=== PATIENT | female | born 1950 | race Caucasian/White ===

== ENCOUNTER 2019-04-21 18:24 | Emergency (ER) | payer OTHER ==
[~2019-04-21] VITALS: Ht 157.5 cm; Wt 62.4 kg
[2019-04-21 18:26] VITALS: Ht 157.5 cm; Wt 62.4 kg
--- NOTE | 2019-04-21 18:37 | ERD ---
ER Documentation Chief Complaint Chief Complaint DIZZINESS X 3 DAYS HPI 68-year-old female history of hypertension hyperlipidemia presents the ED complaining of a 3-day history of dizziness. Patient reports 2-3 episodes per day of dizziness/lightheadedness which lasts several seconds accompanied by mild nausea but no vomiting. No URI symptoms or cough. Denies hearing changes or tinnitus. Denies chest pain, palpitations or shortness of breath. Mild, gradual onset, pressure-like, nonradiating occipital headache but neck pain, visual changes, focal weakness or numbness. No fevers or chills. Patient admits to anxiety and has been sleeping well recently but denies depression or thoughts of self-harm. ROS All systems reviewed and are negative except as per history of present illness. Allergies Allergies: Coded Allergies: No Known Allergy (Unverified , 04/21/19) PMhx/Soc History of Surgery: Yes Anesthesia Reaction: No Hx Neurological Disorder: No Hx Respiratory Disorders: No Hx Cardiac Disorders: Yes (Hypertension) Hx Psychiatric Problems: Yes (Anxiety) Hx Miscellaneous Medical Probl: Yes (Hyperlipidemia) Hx Alcohol Use: No Hx Substance Use: No Hx Tobacco Use: No FmHx No family history of stroke, subarachnoid hemorrhage or heart disease Physical Exam Vitals Vital Signs Date Temp Pulse Resp B/P (MAP) Pulse Ox O2 O2 Flow FiO2 Time Delivery Rate 04/21/19 98.3 83 16 183/91 98 Room Air 18:43 (121) 04/21/19 98.6 85 18 233/94 95 18:26 (140) Physical Exam Const: Alert, anxious, mild distress. Head: Atraumatic Eyes: Normal Conjunctiva. Pupils equal react to light, extraocular movements are intact. No nystagmus. ENT: Normal External Ears, Nose and Mouth. Neck: Full range of motion. No meningismus. Resp: Clear to auscultation bilaterally Cardio: Regular rate and rhythm, no murmurs Abd: Soft, non tender, non distended. No rebound or guarding. No masses or abnormal pulsations. Normal bowel sounds Skin: No petechiae or rashes Back: No midline or flank tenderness Ext: No cyanosis, or edema. Pulses 4+ in all extremities. Neur: Awake and alert. Cranial nerves II through XII are grossly intact. Motor and sensory equal bilaterally. No pronator drift. DTRs are symmetrical. No dysdiadochokinesis. Normal [id number]. Gait is normal. Psych: Anxious but not depressed. Result Diagram: 04/21/19191004/21/191910 Results 24 hrs Laboratory Tests Test 04/21/19 19:11 White Blood Count 5.3 10^3/ul Red Blood Count 4.37 10^6/ul Hemoglobin 12.5 g/dl Hematocrit 36.8 % Mean Corpuscular Volume 84.2 fl Mean Corpuscular Hemoglobin 28.6 pg Mean Corpuscular Hemoglobin Concent 34.0 g/dl Red Cell Distribution Width 13.2 % Platelet Count 247 10^3/UL Mean Platelet Volume 9.9 fl Immature Granulocytes % 0.400 % Neutrophils % 63.8 % Lymphocytes % 22.5 % Monocytes % 12.1 % Eosinophils % 0.6 % Basophils % 0.6 % Nucleated Red Blood Cells % 0.0 /100WBC Immature Granulocytes # 0.020 10^3/ul Neutrophils # 3.4 10^3/ul Lymphocytes # 1.2 10^3/ul Monocytes # 0.6 10^3/ul Eosinophils # 0.0 10^3/ul Basophils # 0.0 10^3/ul Nucleated Red Blood Cells # 0.0 10^3/ul Sodium Level 142 mmol/L Potassium Level 3.6 mmol/L Chloride Level 106 mmol/L Carbon Dioxide Level 27 mmol/L Anion Gap 9 Blood Urea Nitrogen 13 mg/dl Creatinine 0.83 mg/dl Est Glomerular Filtrat Rate mL/min > 60 mL/min Glucose Level 96 mg/dl Calcium Level 9.7 mg/dl Total Bilirubin 0.7 mg/dl Direct Bilirubin 0.00 mg/dl Indirect Bilirubin 0.7 mg/dl Aspartate Amino Transf (AST/SGOT) 26 IU/L Alanine Aminotransferase (ALT/SGPT) 29 IU/L Alkaline Phosphatase 57 IU/L Troponin I < 0.012 ng/ml Total Protein 7.6 g/dl Albumin 4.5 g/dl Globulin 3.10 g/dl Albumin/Globulin Ratio 1.45 Current Medications Medications Dose Sig/Nurys Start Time Status Last (Trade) Ordered Route PRN Stop Time Admin Dose Reason Admin 650 mg ONCE ONCE 04/21/19 UNV Acetaminophen PO 20:30 04/21/19 (Tylenol 20:31 Tab) Procedures/MDM DOCUMENTS REVIEWED: ED nurse, no prior records EKG: Time: 7035. Sinus rhythm. Ventricular rate 84. Normal FL QRS. No ectopy. No ST-T wave changes. My Interpretation IMAGING: PROCEDURE: XR Chest. CLINICAL INDICATION: Shortness of breath. Dizziness. TECHNIQUE: Single frontal view. COMPARISON: None. FINDINGS: The lungs are clear. The heart size is normal. There is calcification in the aorta consistent with atherosclerosis. There is no pleural effusion or pneumothorax. Surgical clips are present in the right upper quadrant of the abdomen. IMPRESSION: 1. Atherosclerosis. 2. Prior right upper quadrant abdomen surgery. 3. Otherwise unremarkable chest radiograph. RPTAT: QQ .Vickey Marie MD, MD Date Time Electronically viewed and signed by .Vickey Marie MD, MD on 04/21/2019 19:40 PROCEDURE: CT Brain without contrast. CLINICAL INDICATION: Headache and dizziness. TECHNIQUE: A CT of the brain without contrast was performed utilizing axial sections from the skull base through the vertex. The patient was scanned without intravenous contrast enhancement. Sagittal and coronal reformatted images were obtained using the data from the axial images. Total exam DLP is 714 mGy-cm. CTDIvol is 40 mGy. One or more of the following dose reduction techniques were used: Automated exposure control, adjustment of the mA and/or kV according to patient size, use of iterative reconstruction technique. DICOM images are available. COMPARISON: None available. FINDINGS: There is normal dunbar-white matter differentiation. There is enlargement of the ventricles and subarachnoid spaces consistent with atrophy. There is decreased attenuation of the periventricular white matter consistent with microangiopathic ischemic change. There is no intracranial hemorrhage or space-occupying lesion. There are vascular calcifications consistent with atherosclerosis. There is no skull fracture or lytic lesion. IMPRESSION: 1. Atrophy. 2. Microangiopathic ischemic change. 3. Atherosclerosis. 4. No intracranial hemorrhage. 5. Otherwise unremarkable noncontrast CT scan of the brain. RPTAT: QQ .Vickey Marie MD, MD Date Time Electronically viewed and signed by .Vickey Marie MD, MD on 04/21/2019 19:39 REEVALUATIONS: Time: 20: 15. Doing well. Asymptomatic. BP is improved. Feels well and request discharge. MEDICAL DECISION MAKIN-year-old female history of hypertension hyperlipidemia presents the ED complaining of a 3-day history of dizziness. CBC is negative for leukocytosis, anemia or thrombocytopenia. Chemistry reveals no evidence of electrolyte abnormalities, renal insufficiency or hyperglycemia. EKG is negative for dysrhythmia or ischemia. Troponin is not elevated. CT of the brain to evaluate for mass, hemorrhage, infarct and hydrocephalus is unremarkable. Chest x-ray is negative for infiltrate or effusion. Patient presents with dizziness. A broad differential is considered. No evidence of meningitis, intracranial bleed, seizure, stroke, or elevated intracranial pressure. Vertebrobasilar TIA is unlikely. Benign positional vertigo, labyrinthitis and Mnire's disease are considered. Patient admits to anxiety but no depression or thoughts of self-harm. Poorly controlled hypertension without evidence of hypertensive emergency or urgency. Mild, gradual onset headache not consistent with subarachnoid hemorrhage, meningitis and encephalitis hence lumbar puncture is not indicated. Though the patient's latest blood pressure was elevated (>120/80), the patient has a known history of hypertension and urged to pursue adjustment of their medical therapy within a week with their primary care physician. Please refer to the medication reconciliation form for the current list of hypertensive medications. Stable f or discharge with precaution instructions and outpatient follow-up as counseled. Counseled patient regarding diagnostic workup, diagnosis and need for followup. Understands to return to ED if symptoms recur, worsen or any other concerns. Departure Diagnosis: Primary Impression: Dizziness Additional Impressions: Accelerated hypertension Tension headache Condition: Stable JOELLE BOWENS MD Apr 21, 2019 18:37
[2019-04-21] MEDS ORDERED: ACETAMINOPHEN 325 MG TAB PO ONE (20:30)
[2019-04-21 20:40] VITALS: BP 167/72; PULSE 79; RESP 16
== END 2019-04-21 20:52 | disposition home or self-care (01) ==
LOC: E/R 18:24
DX: I10 Essential (primary) hypertension (principal); G44.209 Tension-type headache, unspecified, not intractable
CPT/HCPCS: 70450; 71045; 80053; 84484; 85025; 93005